=== PATIENT | female | born 1980 | race Caucasian/White ===

== ENCOUNTER 2017-08-14 10:57 | Day surgery (SDC) | payer BC ==
--- NOTE | 2017-08-13 20:02 | PCM.OPNOTE ---
- General Post-Op/Procedure Note Date of Surgery/Procedure: 08/14/17 Operative Procedure(s): ORIF R trimalleolar ankle fracture (med/lat only) Post-Op Diagnosis: R trimalleolar ankle fracture Anesthesia Technique: General LMA Primary Surgeon: Nessa Poe Vessel Traffic Officer: Nemo Orozco in mLs: 10 Condition: Good Free Text/Narrative:: tt= 42minutes
[~2017-08-14 10:57] MED LIST: Acetaminophen/HYDROcodone 325-5 MG Tab PO PRN; Ketorolac 30 MG/ML SDV ONE; Lactated Ringers 1,000 ML IV SCH; Lidocaine 2% 5 ML SDV ONE; Midazolam 1 MG/ML 2 ML SDV ONE; Ondansetron 4 MG/2 ML SDV ONE; Propofol 200 MG/20 ML SDV ONE; ceFAZolin 2 GM in Premix Bag 1 BAG IV SCH; fentaNYL 100 MCG/2 ML SDV ONE; fentaNYL 250 MCG/5 ML SDV ONE
[2017-08-14] MEDS ORDERED: Scopolamine 1.5 MG Transdermal Patch TRDERM PRN (12:03)
--- NOTE | 2017-08-14 12:04 | PCM.PREANE ---
Preanesthetic Assessment - Anesthesia/Transfusion/Family Hx Anesthesia History: Prior Anesthesia Reaction Type of Anesthesia Reaction: Excessive Nausea/Vomiting Family History of Anesthesia Reaction: No Transfusion History: No Prior Transfusion(s) - Review of Systems General: No Symptoms Pulmonary: No Symptoms Cardiovascular: No Symptoms Gastrointestinal: No Symptoms Neurological: No Symptoms Other: Reports: None - Physical Assessment NPO Status Date: 08/13/17 Height: 1.55 m Weight: 81.647 kg ASA Class: 2 Mental Status: Alert & Oriented x3 Airway Class: Mallampati = 2 Dentition: Reports: Normal Dentition ROM/Head Extension: Full Lungs: Clear to Auscultation, Normal Respiratory Effort Cardiovascular: Regular Rate, Regular Rhythm - Allergies Allergies/Adverse Reactions: Allergies Allergy/AdvReac Type Severity Reaction Status Date / Time No Known Allergies Allergy Verified 08/09/17 14:39 - Anesthesia Plan Pre-Op Medication Ordered: Other (scop patch) - Acknowledgements Anesthesia Type Planned: General Anesthesia Pt an Appropriate Candidate for the Planned Anesthesia: Yes Alternatives and Risks of Anesthesia Discussed w Pt/Guardian: Yes Pt/Guardian Understands and Agrees with Anesthesia Plan: Yes PreAnesthesia Questionnaire Other HEENT History: wears glasses Cardiovascular History: Reports: Arrhythmia Other Cardiovascular History: hx of "skipping beats", not recently...told to stay away from caffeine. 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 Was septic 4 years ago Musculoskeletal History: Reports: Fracture Other Musculoskeletal History: hx of fx toe Neurological History: Reports: Vertigo Other Neuro History: hx of vertigo, not for 6 months Psychiatric History: Reports: Anxiety, Depression Endocrine/Metabolic History: Reports: Obesity/BMI 30+ Other Dermatologic History: hx of vaginal herpes - Past Surgical History Head Surgeries/Procedures: Reports: None HEENT Surgical History: Reports: Eye Surgery Other HEENT Surgeries/Procedures: hx of left eye muscle surgery Female Surgical History: Reports: Breast Implant, Cervical Conization, Tubal Ligation - SUBSTANCE USE Smoking Status *Q: Never Smoker Recreational Drug Use History: No - HOME MEDS Home Medications: Home Meds traZODone HCl [Trazodone HCl] 100 mg PO BEDTIME 08/09/17 [History] Acetaminophen/HYDROcodone [[place] 325-5 MG] 1 - 2 tab PO Q4H PRN #80 tablet 08/14 [Rx] - CURRENT (IN HOUSE) MEDS Current Meds: Current Medications Hydrocodone Bitart/Acetaminophen ([place] 325-5 Mg) 1 - 2 tab PO Q4H PRN PRN Reason: Pain Lactated Ringer's (Ringers, Lactated) 1,000 mls @ 125 mls/hr IV ASDIRECTED ALISA Cefazolin Sodium/Dextrose 2 gm (/ Premix) 50 mls @ 100 mls/hr IV ONCALL ALISA Discontinued Medications Fentanyl (Sublimaze) Confirm Administered Dose 100 mcg .ROUTE .STK-MED ONE Stop: 08/14/17 10:14 Fentanyl (Sublimaze) Confirm Administered Dose 250 mcg .ROUTE .STK-MED ONE Stop: 08/14/17 10:14 Ketorolac Tromethamine (Toradol) Confirm Administered Dose 30 mg .ROUTE .STK- MED ONE Stop: 08/14/17 10:14 Lidocaine (Xylocaine-Mpf 2%) Confirm Administered Dose 10 ml .ROUTE .STK-MED ONE Stop: 08/14/17 10:14 Midazolam HCl (Versed 1 Mg/Ml) Confirm Administered Dose 2 mg .ROUTE .STK-MED ONE Stop: 08/14/17 10:14 Ondansetron HCl (Zofran) Confirm Administered Dose 4 mg .ROUTE .STK-MED ONE Stop: 08/14/17 10:14 Propofol (Diprivan 20 Ml) Confirm Administered Dose 400 mg .ROUTE .STK-MED ONE Stop: 08/14/17 10:14
[2017-08-14] MEDS ORDERED: Ondansetron 4 MG/2 ML SDV ONE (13:25)
[2017-08-14] MEDS ORDERED: Ondansetron 4 MG Tab.DIS PO PRN (14:17)
[2017-08-14] MEDS ORDERED: Acetaminophen/oxyCODONE 325-10 MG Tab PO PRN (14:17)
[2017-08-14] MEDS: HYDROmorphone 2 MG/ML Syringe IVPUSH ONE ×2 (14:23→14:28)
[2017-08-14] MEDS: fentaNYL 100 MCG/2 ML SDV IVPUSH PRN ×4 (14:25→14:49)
--- NOTE | 2017-08-14 15:15 | PCM.POSTAN ---
POST ANESTHESIA ASSESSMENT - MENTAL STATUS Mental Status: Alert, Oriented - RESPIRATORY Respiratory Status: Respiratory Rate WNL, Airway Patent, O2 Saturation Stable - CARDIOVASCULAR CV Status: Pulse Rate WNL, Blood Pressure Stable - GASTROINTESTINAL GI Status: No Symptoms - PAIN Pain Score: 3 - POST OP HYDRATION Hydration Status: Adequate & Stable
--- NOTE | 2017-08-14 16:43 | PCM48HPAN ---
Post Anesthesia Note - EVALUATION WITHIN 48HRS OF ANESTHETIC Vital Signs in Normal Range: Yes Patient Participated in Evaluation: Yes Respiratory Function Stable: Yes Airway Patent: Yes Cardiovascular Function Stable: Yes Hydration Status Stable: Yes Pain Control Satisfactory: Yes Nausea and Vomiting Control Satisfactory: Yes Mental Status Recovered: Yes
--- NOTE | 2017-08-14 16:43 | CR ---
EXAMINATION: Unspecified Ankle HISTORY: Surgery COMPARISON: None TECHNIQUE: 5 fluoroscopic images provided FINDINGS/IMPRESSION: Operative control films demonstrate screw and plate hardware fixating the distal fibula. 2 screws fixate the medial malleolus.
--- NOTE | 2017-08-14 18:58 | OR ---
SURGEON: Nessa Poe MD DATE OF PROCEDURE: 08/14/2017 PREOPERATIVE DIAGNOSIS: Right trimalleolar ankle fracture. POSTOPERATIVE DIAGNOSIS: Right trimalleolar ankle fracture. PROCEDURE: Open reduction and internal fixation of right trimalleolar ankle fracture (medial and lateral malleolus only). FAST FOOD MANAGER: Nemo Orozco PA-C. ANESTHESIA: General. ESTIMATED BLOOD LOSS: 10 mL. TOURNIQUET TIME: 42 minutes. COMPLICATIONS: None. DVT PROPHYLAXIS: PAS boot to the nonoperative leg. IMPLANTS USED: [place] 1/3rd semitubular plate, 7 hole with a combination of 3.5 mm nonlocking cortical screws and 4.0 mm nonlocking cancellous screws. BRIEF HISTORY: Josselin is a 36-year-old female, who injured her right ankle. She was seen in clinic where x-rays showed a right trimalleolar ankle fracture. At that time, surgical treatment was recommended. Risks and goals of procedure were discussed with the patient and were documented preoperatively. She agreed to proceed. DESCRIPTION OF PROCEDURE: The patient was properly identified and brought to the operating room. She was transferred from the OR cart and placed on the operating table in supine position. General anesthesia was administered. After adequate anesthesia was obtained, well-padded tourniquet was applied to the right lower extremity. The right lower extremity was then prepped in standard fashion using ChloraPrep solution. It was then sterilely draped. A time-out was performed to ensure correct site and procedure. Preoperative antibiotics were given. The surgical site had been marked preoperatively. An Esmarch was used to exsanguinate the right lower extremity, and the tourniquet was inflated to 250 mmHg. An incision was made over the lateral aspect of the ankle. Subcutaneous tissues were incised. The soft tissues were dissected. The superficial peroneal nerve was not encountered. Fracture was then identified. It was quite transverse in nature. The fracture site was opened and fracture hematoma was evacuated with saline. A bone reduction clamp was then placed and the fracture was reduced. I elected to proceed with a 7 hole 1/3rd semitubular plate. This was contoured to the bone. 3.5 mm screws were used proximally and 4.0 mm screws were used distal to the fracture site. The C-arm imaging did confirm that the fibula was out to length and there was adequate reduction of the fracture. A screw hole over the fracture site was not filled as I did not feel there would be significant purchase. I then turned my attention to the medial aspect. An incision was made over the medial malleolus. Subcutaneous tissues were dissected. I did not encounter this superficial nerve or vein. The periosteum was then incised. The fracture was visualized. A portion of the periosteum had flipped into the fracture site. The fracture was held open while it was copiously irrigated with saline solution to remove any fracture hematoma. It was able to be reduced easily. Two K-wire guide pins were then passed from the tip of the medial malleolus into the distal tibia. There position was checked in both the AP and lateral views and was felt that they were acceptable. The cannulated drill bit was then used to over drill the distal portion of the fragment. Two 50 mm partially threaded cancellous screws with washer were then placed. This provided good compression at the fracture site. Final C-arm images confirmed nearly anatomic reduction of the fracture with good position of the hardware. Both wounds were then copiously irrigated with saline solution. The deep tissues were closed with 0 Vicryl. The tourniquet was then deflated. No excess bleeding was noted. Subcutaneous tissues were closed with 2-0 Monocryl and the skin was closed with dagoberto. Xeroform gauze was placed over the wound and a bulky dressing was applied. It was placed into a well-padded posterior splint with medial and lateral stabilizing slabs. She was awakened from her anesthetic and transferred back to the operating room cart. She was brought to recovery room in stable condition. All needle and sponge counts were correct. ITZ / RONNY /[id number]
== END 2017-08-14 16:40 | disposition home or self-care (01) ==
LOC: MW.SDS 10:57
PROVIDERS: ATTEND Orthopaedic Surgery
DX: S82.851A Displaced trimalleolar fracture of right lower leg, initial encounter for closed fracture (principal); F41.9 Anxiety disorder, unspecified; F32.9 Major depressive disorder, single episode, unspecified; E66.9 Obesity, unspecified; Z79.899 Other long term (current) drug therapy; Z98.51 Tubal ligation status; Z68.30 Body mass index [BMI] 30.0-30.9, adult; X58.XXXA Exposure to other specified factors, initial encounter
CPT/HCPCS: 27822; 76001; 81025; A9270; C1713; C1769; J0690; J1170; J1885; J2250; J2405; J3010; J7120; 01480; J2704

== ENCOUNTER 2018-04-11 09:14 | Day surgery (SDC) | payer BC ==
[~2018-04-11 09:14] MED LIST changes: -Ketorolac 30 MG/ML SDV ONE; -Lidocaine 2% 5 ML SDV ONE; -Midazolam 1 MG/ML 2 ML SDV ONE; -Ondansetron 4 MG/2 ML SDV ONE; -Propofol 200 MG/20 ML SDV ONE; +ceFAZolin 1 GM in Premix Bag 1 BAG IV SCH; -ceFAZolin 2 GM in Premix Bag 1 BAG IV SCH; -fentaNYL 100 MCG/2 ML SDV ONE; -fentaNYL 250 MCG/5 ML SDV ONE
[2018-04-11] MEDS ORDERED: Bupivacaine 0.5% 10 ML SDV ONE (09:16)
--- NOTE | 2018-04-11 09:51 | PCM.PREANE ---
Preanesthetic Assessment - Procedure Proposed Procedure: Painful Hardware Removal Right Ankle - Anesthesia/Transfusion/Family Hx Anesthesia History: Prior Anesthesia Without Reaction Transfusion History: No Prior Transfusion(s) - Review of Systems General: No Symptoms Pulmonary: No Symptoms Cardiovascular: No Symptoms Gastrointestinal: No Symptoms Neurological: No Symptoms Other: Reports: None - Physical Assessment NPO Status Date: 04/10/18 NPO Status Time: 22:00 Height: 5 ft 1 in Weight: 77.111 kg ASA Class: 2 Mental Status: Alert & Oriented x3 Airway Class: Mallampati = 2 Dentition: Reports: Normal Dentition Thyro-Mental Finger Breadths: 3 Mouth Opening Finger Breadths: 3 ROM/Head Extension: Full Lungs: Clear to Auscultation, Normal Respiratory Effort Cardiovascular: Regular Rate, Regular Rhythm - Allergies Allergies/Adverse Reactions: Allergies Allergy/AdvReac Type Severity Reaction Status Date / Time No Known Allergies Allergy Verified 04/05/18 13:26 - Anesthesia Plan Free Text/Narrative:: Pulse Regular for 60 seconds via palpation. - Acknowledgements Anesthesia Type Planned: General Anesthesia Pt an Appropriate Candidate for the Planned Anesthesia: Yes Alternatives and Risks of Anesthesia Discussed w Pt/Guardian: Yes Pt/Guardian Understands and Agrees with Anesthesia Plan: Yes PreAnesthesia Questionnaire HEENT History: Reports: Other (See Below) Other HEENT History: wears glasses Cardiovascular History: Reports: Arrhythmia, Other (See Below) Other Cardiovascular History: hx of "skipping beats", not recently...told to stay away from caffeine. Pt did have a holter monitor test complete a few years ago. 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 Was septic in the past Musculoskeletal History: Reports: Fracture Other Musculoskeletal History: hx of fx toe Neurological History: Reports: Vertigo Other Neuro History: hx of vertigo Psychiatric History: Reports: ADD, Anxiety, Depression Endocrine/Metabolic History: Reports: Obesity/BMI 30+ Hematologic History: Reports: None Immunologic History: Reports: None Oncologic (Cancer) History: Reports: None Dermatologic History: Reports: Other (See Below) Other Dermatologic History: hx of vaginal herpes - Infectious Disease History Infectious Disease History: Reports: None - Past Surgical History Head Surgeries/Procedures: Reports: None HEENT Surgical History: Reports: Eye Surgery Other HEENT Surgeries/Procedures: hx of left eye muscle surgery Female Surgical History: Reports: Breast Implant, Cervical Conization, Tubal Ligation Musculoskeletal Surgical History: Reports: ORIF Other Musculoskeletal Surgeries/Procedures:: ORIF rt ankle - SUBSTANCE USE Smoking Status *Q: Never Smoker Recreational Drug Use History: No - HOME MEDS Home Medications: Home Meds Ranitidine [Zantac] 1 tab PO ASDIRECTED PRN 04/05/18 [History] traZODone HCl [Trazodone HCl] 100 mg PO BEDTIME PRN 04/05/18 [History] - CURRENT (IN HOUSE) MEDS Current Meds: Current Medications Hydrocodone Bitart/Acetaminophen ([place] 325-5 Mg) 1 - 2 tab PO Q4H PRN PRN Reason: Pain Cefazolin Sodium/Dextrose 1 gm (/ Premix) 50 mls @ 100 mls/hr IV ONCALL ALISA Lactated Ringer's (Ringers, Lactated) 1,000 mls @ 100 mls/hr IV ASDIRECTED ALISA Discontinued Medications Bupivacaine HCl (Sensorcaine-Mpf 0.5%) Confirm Administered Dose 20 ml .ROUTE .STK-MED ONE Stop: 04/11/18 09:17
[2018-04-11] MEDS ORDERED: Midazolam 1 MG/ML 2 ML SDV IVPUSH ONE (11:07)
[2018-04-11] MEDS ORDERED: Ketorolac 30 MG/ML SDV ONE (12:39)
[2018-04-11] MEDS ORDERED: ePHEDrine 50 MG/ML SDV ONE (12:39)
[2018-04-11] MEDS ORDERED: fentaNYL 100 MCG/2 ML SDV ONE (12:39)
[2018-04-11] MEDS ORDERED: Propofol 200 MG/20 ML SDV ONE (12:39)
[2018-04-11] MEDS ORDERED: Dexamethasone 4 MG/ML 5 ML MDV ONE (12:39)
[2018-04-11] MEDS ORDERED: Midazolam 1 MG/ML 2 ML SDV ONE (12:39)
[2018-04-11] MEDS ORDERED: Ondansetron 4 MG/2 ML SDV ONE (12:39)
[2018-04-11] MEDS ORDERED: Acetaminophen/oxyCODONE 325-5 MG Tab PO PRN (13:27)
--- NOTE | 2018-04-11 13:30 | PCM.OPNOTE ---
- General Post-Op/Procedure Note Date of Surgery/Procedure: 04/11/18 Operative Procedure(s): HWR right ankle Post-Op Diagnosis: painful retained HW R ankle Anesthesia Technique: General ET Tube Primary Surgeon: Nessa Poe Pool Attendant: Larissa Oneill in mLs: 5 Condition: Good Free Text/Narrative:: tt=13 min #[id number]
[2018-04-11] MEDS: fentaNYL 100 MCG/2 ML SDV IVPUSH PRN ×2 (13:43→13:48)
--- NOTE | 2018-04-11 13:51 | OR ---
SURGEON: Nessa Poe MD DATE OF PROCEDURE: 04/11/2018 PREOPERATIVE DIAGNOSES: 1. Painful retained hardware, right ankle, status post open reduction and internal fixation. 2. Right bimalleolar ankle fracture. POSTOPERATIVE DIAGNOSES: 1. Painful retained hardware, right ankle, status post open reduction and internal fixation. 2. Right bimalleolar ankle fracture. PROCEDURE: Hardware removal of right ankle, deep implant. INFORMATION SECURITY SYSTEMS INSTRUCTOR: Larissa Oneill PA-C. ANESTHESIA: General. ESTIMATED BLOOD LOSS: 5 mL. TOURNIQUET TIME: 13 minutes. COMPLICATIONS: None. DVT PROPHYLAXIS: Not indicated. IMPLANTS USED: None. BRIEF HISTORY: Josselin is a 37-year-old female, who previously underwent open reduction and internal fixation of a right ankle fracture. She did heal the fracture well; however, continued to be bothered by persistent pain over the hardware. Due to her lack of response to conservative treatment, I did recommend surgical intervention. The risks and goals of procedure were discussed with the patient and were documented preoperatively. She agreed to proceed. DESCRIPTION OF PROCEDURE: The patient was properly identified and brought to the operating room. She was transferred from the OR cart and placed on the operating table in supine position. General anesthesia was administered. After adequate anesthesia was obtained, a well-padded tourniquet was applied to the right lower extremity. The right lower extremity was then prepped in standard fashion using ChloraPrep solution. It was then sterilely draped. A time-out was performed to ensure correct site and procedure. Preoperative antibiotics were given. The surgical site had been marked preoperatively. An Esmarch was used to exsanguinate the right lower extremity and the tourniquet was inflated to 250 mmHg. An incision was made over the lateral aspect of the ankle, over the site of the previous incision. Subcutaneous tissues were dissected. The superficial peroneal nerve was not encountered. The hardware was readily visible. The soft tissue was cleared from the plate. The screws and plate were then removed without difficulty. The wound was copiously irrigated with saline solution. The deep tissues were closed with 0 Vicryl. The subcutaneous tissues were closed with 2-0 Monocryl and the skin was closed with dagoberto. I then turned my attention to the medial side. A medial incision was made over the site of the previous incision. The subcutaneous tissues were dissected down to the level of the hardware. It was easily identifiable. Two screws along with washers were removed without difficulty. Wound was copiously irrigated with saline solution. Deep tissues were closed with 0 Vicryl. Subcutaneous tissues were closed with 2-0 Monocryl and the skin was closed with dagoberto. C- arm imaging confirmed, all hardware had been removed. Hardware was sent for pathology review. 0.5% Marcaine was injected was then injected along the incision sites. Xeroform gauze was placed over the wounds and a bulky dressing was applied. The tourniquet was deflated prior to final wound closure, which showed no excess bleeding upon deflation. She was awakened from her anesthetic and transferred back to the operating room cart. She was brought to recovery room in stable condition. All needle and sponge counts were correct. ITZ / RONNY /[id number]
--- NOTE | 2018-04-11 14:19 | PCM.POSTAN ---
POST ANESTHESIA ASSESSMENT - MENTAL STATUS Mental Status: Alert, Oriented - RESPIRATORY Respiratory Status: Respiratory Rate WNL, Airway Patent, O2 Saturation Stable - CARDIOVASCULAR CV Status: Pulse Rate WNL, Blood Pressure Stable - GASTROINTESTINAL GI Status: No Symptoms - POST OP HYDRATION Hydration Status: Adequate & Stable
--- NOTE | 2018-04-11 14:19 | PCM48HPAN ---
Post Anesthesia Note - EVALUATION WITHIN 48HRS OF ANESTHETIC Vital Signs in Normal Range: Yes Patient Participated in Evaluation: Yes Respiratory Function Stable: Yes Airway Patent: Yes Cardiovascular Function Stable: Yes Hydration Status Stable: Yes Pain Control Satisfactory: Yes Nausea and Vomiting Control Satisfactory: Yes Mental Status Recovered: Yes Resp Rate: 20
[2018-04-11] MEDS ORDERED: Haloperidol Lactate 5 MG/ML SDV IM ONE (14:28)
--- NOTE | 2018-04-11 16:29 | CR ---
EXAMINATION: Right ankle HISTORY: Hardware removal COMPARISON: 02/06/2018 TECHNIQUE: Single view FINDINGS/IMPRESSION: Postoperative films demonstrate removal of distal fibular screw and plate hardwa re and 2 screws fixating the medial malleolus.
== END 2018-04-11 15:00 | disposition home or self-care (01) ==
LOC: MW.SDS 09:14
PROVIDERS: ATTEND Orthopaedic Surgery
DX: T84.84XA Pain due to internal orthopedic prosthetic devices, implants and grafts, initial encounter (principal); E66.9 Obesity, unspecified; Z68.32 Body mass index [BMI] 32.0-32.9, adult; F41.9 Anxiety disorder, unspecified; F32.9 Major depressive disorder, single episode, unspecified
CPT/HCPCS: 20680; 76000; 81025; A9270; J1100; J1630; J1885; J2250; J2405; J2704; J3010; J3490; J7120; 88300

== ENCOUNTER 2019-09-27 06:38 | Day surgery (SDC) | payer BC ==
[~2019-09-27 06:38] MED LIST changes: -Acetaminophen/HYDROcodone 325-5 MG Tab PO PRN; -ceFAZolin 1 GM in Premix Bag 1 BAG IV SCH
[2019-09-27] MEDS ORDERED: Bupivacaine 0.5% 30 ML SDV ONE (07:16)
[2019-09-27] MEDS ORDERED: Lidocaine 1% 20 ML MDV ONE (07:16)
--- NOTE | 2019-09-27 07:20 | PCM.PREANE ---
Preanesthetic Assessment - Anesthesia/Transfusion/Family Hx Anesthesia History: Prior Anesthesia Without Reaction Family History of Anesthesia Reaction: No Transfusion History: No Prior Transfusion(s) - Review of Systems General: No Symptoms Pulmonary: No Symptoms Cardiovascular: No Symptoms Gastrointestinal: No Symptoms Neurological: No Symptoms Other: Reports: None - Physical Assessment NPO Status Date: 09/26/19 NPO Status Time: 22:30 Vital Signs: Last Vital Signs Temp 96.6 F 09/27/19 07:00 Pulse 77 09/27/19 07:00 Resp 18 09/27/19 07:00 BP 139/72 09/27/19 07:00 Pulse Ox 98 09/27/19 07:00 Height: 5 ft 1 in Weight: 78.925 kg ASA Class: 2 Mental Status: Alert & Oriented x3 Airway Class: Mallampati = 2 Dentition: Reports: Normal Dentition ROM/Head Extension: Full Lungs: Clear to Auscultation, Normal Respiratory Effort Cardiovascular: Regular Rate, Regular Rhythm - Lab Values: Laboratory Last Values Urine HCG, Qual NEGATIVE (NEGATIVE) 09/27/19 06:56 - Allergies Allergies/Adverse Reactions: Allergies Allergy/AdvReac Type Severity Reaction Status Date / Time No Known Allergies Allergy Verified 09/23/19 08:37 - Blood Blood Available: No - Anesthesia Plan Pre-Op Medication Ordered: None - Acknowledgements Anesthesia Type Planned: General Anesthesia Pt an Appropriate Candidate for the Planned Anesthesia: Yes Alternatives and Risks of Anesthesia Discussed w Pt/Guardian: Yes Pt/Guardian Understands and Agrees with Anesthesia Plan: Yes Additional Comments: apl: swasonal allergies, anx/dep, migraine plan: ga/lma PreAnesthesia Questionnaire HEENT History: Reports: Other (See Below) Other HEENT History: wears glasses Cardiovascular History: Reports: Arrhythmia, Other (See Below) Other Cardiovascular History: hx of "skipping beats", not recently...told to stay away from caffeine. 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 Was septic in the past Musculoskeletal History: Reports: Fracture Other Musculoskeletal History: hx of fx toe & rt ankle Neurological History: Reports: None Psychiatric History: Reports: ADD, Anxiety, Depression Endocrine/Metabolic History: Reports: Obesity/BMI 30+ Hematologic History: Reports: None Immunologic History: Reports: None Oncologic (Cancer) History: Reports: None Dermatologic History: Reports: Other (See Below) Other Dermatologic History: hx of vaginal herpes - Infectious Disease History Infectious Disease History: Reports: None - Past Surgical History Head Surgeries/Procedures: Reports: None HEENT Surgical History: Reports: Eye Surgery Other HEENT Surgeries/Procedures: hx of left eye muscle surgery Cardiovascular Surgical History: Reports: None Respiratory Surgical History: Reports: None GI Surgical History: Reports: None Female Surgical History: Reports: Breast Implant, Cervical Conization, Tubal Ligation Endocrine Surgical History: Reports: None Neurological Surgical History: Reports: None Musculoskeletal Surgical History: Reports: ORIF Other Musculoskeletal Surgeries/Procedures:: ORIF rt ankle, later had hardware removed Oncologic Surgical History: Reports: None Dermatological Surgical History: Reports: None - SUBSTANCE USE Smoking Status *Q: Never Smoker - HOME MEDS Home Medications: Home Meds Ibuprofen 3 - 4 tab PO DAILY 09/23/19 [History] Multivit-Min/Folic Acid/Biotin [Hair, Skin and Nails Caplet] 1 tab PO DAILY [History] Multivitamin [Multivitamins] 1 tab PO DAILY 09/23/19 [History] - CURRENT (IN HOUSE) MEDS Current Meds: Current Medications Lactated Ringer's (Ringers, Lactated) 1,000 mls @ 125 mls/hr IV ASDIRECTED [facility] Last Admin: 09/27/19 07:00 Dose: 125 mls/hr
[2019-09-27] MEDS ORDERED: Lidocaine 2% 5 ML SDV ONE (07:33)
[2019-09-27] MEDS ORDERED: Midazolam 1 MG/ML 2 ML SDV ONE (07:34)
[2019-09-27] MEDS ORDERED: fentaNYL 100 MCG/2 ML SDV ONE (07:34)
[2019-09-27] MEDS ORDERED: Propofol 200 MG/20 ML SDV ONE (07:34)
[2019-09-27] MEDS ORDERED: Ondansetron 4 MG/2 ML SDV ONE (08:07)
[2019-09-27] MEDS ORDERED: Dexamethasone 4 MG/ML 5 ML MDV ONE (08:07)
[2019-09-27] MEDS ORDERED: fentaNYL 100 MCG/2 ML SDV IVPUSH PRN (08:46)
[2019-09-27] MEDS ORDERED: Acetaminophen 325 MG Tab PO PRN (08:56)
--- NOTE | 2019-09-27 08:59 | PCM.OPNOTE ---
- General Post-Op/Procedure Note Date of Surgery/Procedure: 09/27/19 Operative Procedure(s): Removal of left thumbnail and removal of left thumb wart Pre Op Diagnosis: Recalcitrant wart Post-Op Diagnosis: Same Anesthesia Technique: General LMA (ASA II) Primary Surgeon: Marco Whitley Fluid Replacement, Intraop: 400 EBL in mLs: 0 Condition: Good Free Text/Narrative:: DICTATION [id number] CPT CODE 95126
[2019-09-27] MEDS ORDERED: Lactated Ringers 1,000 ML IV SCH (09:00)
[2019-09-27] MEDS ORDERED: Acetaminophen/HYDROcodone 325-5 MG Tab PO ONE (09:27)
--- NOTE | 2019-09-27 09:39 | PCM.POSTAN ---
POST ANESTHESIA ASSESSMENT - MENTAL STATUS Mental Status: Alert, Oriented - VITAL SIGNS Vital Signs: Last Vital Signs Temp 96.6 F 09/27/19 09:09 Pulse 86 09/27/19 09:09 Resp 16 09/27/19 09:09 BP 116/72 09/27/19 09:09 Pulse Ox 99 09/27/19 09:09 - RESPIRATORY Respiratory Status: Respiratory Rate WNL, Airway Patent, O2 Saturation Stable - CARDIOVASCULAR CV Status: Pulse Rate WNL, Blood Pressure Stable - GASTROINTESTINAL GI Status: No Symptoms - POST OP HYDRATION Hydration Status: Adequate & Stable
--- NOTE | 2019-09-27 09:40 | PCM48HPAN ---
Post Anesthesia Note - EVALUATION WITHIN 48HRS OF ANESTHETIC Vital Signs in Normal Range: Yes Patient Participated in Evaluation: Yes Respiratory Function Stable: Yes Airway Patent: Yes Cardiovascular Function Stable: Yes Hydration Status Stable: Yes Pain Control Satisfactory: Yes Nausea and Vomiting Control Satisfactory: Yes Mental Status Recovered: Yes Vital Signs: Last Vital Signs Temp 96.6 F 09/27/19 09:09 Pulse 86 09/27/19 09:09 Resp 16 09/27/19 09:09 BP 116/72 09/27/19 09:09 Pulse Ox 99 09/27/19 09:09
--- NOTE | 2019-09-27 12:28 | OR ---
SURGEON: Marco Whitley M.D. DATE OF PROCEDURE: 09/27/2019 OPERATION PERFORMED: Removal of left thumb wart with removal of left thumbnail. PRIMARY SURGEON: Marco Whitley MD. ANESTHESIA: General LMA ASA CLASSIFICATION: II. PREOPERATIVE DIAGNOSIS: Recalcitrant wart. POSTOPERATIVE DIAGNOSIS: Recalcitrant wart. ESTIMATED BLOOD LOSS: Minimal. INTRAOPERATIVE FLUID REPLACEMENT: 500 mL of crystalloid. DESCRIPTION OF PROCEDURE: The patient was taken to the operating room and placed on the operating table in the supine position. Time-out was called for appropriate identification of the patient and procedure. Following satisfactory attainment of general anesthesia with placement of an LMA, the left hand was prepped with DuraPrep solution and sterile drapes were applied. It was necessary to remove the thumbnail to get at all of the wart. Once this thumbnail was removed, using a combination of electrocautery and sharp debridement, the wart was removed. Treatment was continued until there was no obvious wart remaining and no significant steam coming from any of the cautery sites. Once that was completed, hemostasis was obtained with the use of electrocautery. The wound was then inspected for hemostasis and no bleeding was noted. There was no obvious wart noted remaining. With that accomplished, the wound was covered with bacitracin ointment and dressed with a Band-Aid. The patient tolerated the procedure well. Following emergence from anesthesia and extubation, she was taken to recovery room in stable condition. NIKOLAS / RONNY /[id number]
== END 2019-09-27 09:54 | disposition home or self-care (01) ==
LOC: MW.SDS 06:38
PROVIDERS: ATTEND Surgery
DX: B07.9 Viral wart, unspecified (principal); F41.9 Anxiety disorder, unspecified; F32.9 Major depressive disorder, single episode, unspecified; F98.8 Other specified behavioral and emotional disorders with onset usually occurring in childhood and adolescence; G43.909 Migraine, unspecified, not intractable, without status migrainosus; E66.9 Obesity, unspecified; Z68.32 Body mass index [BMI] 32.0-32.9, adult
CPT/HCPCS: 11750; 17110; 81025; A9270; J1100; J2001; J2250; J2405; J2704; J3010; J3490; J7120; 00400

== ENCOUNTER 2021-06-01 11:29 | Emergency (ER) | payer SELFPAY ==
--- NOTE | 2021-06-01 12:42 | EDM.PDOC ---
ED HPI GENERAL MEDICAL PROBLEM - General Chief Complaint: Abdominal Pain Stated Complaint: STOMACH PAIN Time Seen by Provider: 06/01/21 12:28 Source of Information: Reports: Patient History Limitations: Reports: No Limitations - History of Present Illness INITIAL COMMENTS - FREE TEXT/NARRATIVE: 40-year-old female no relevant past medical or past surgical history presents for right lower quadrant abdominal pain. She notes that the pain started a couple of days ago and worsened this morning. She states it feels crampy, achy and comes in waves. No associated urinary symptoms. Some nausea without vomiting. She notes that it feels somewhat similar to when she had an ovarian cyst. She has never had abdominal surgery so still has appendix and gallbladder. She notes that her period is due to start in a few days. She is declining any pain medication and states that she just wants to know what is wrong. right lower abdomen Pain Score (Numeric/FACES): 2 - Related Data Allergies Allergy/AdvReac Type Severity Reaction Status Date / Time No Known Allergies Allergy Verified 06/01/21 12:33 Home Meds: Home Meds Ibuprofen 3 - 4 tab PO DAILY 09/23/19 [History] traMADol [Ultram] 50 mg PO Q6H PRN #18 tab 06/01/21 [Rx] Past Medical History HEENT History: Reports: Other (See Below) Other HEENT History: wears glasses Cardiovascular History: Reports: Arrhythmia, Other (See Below) Other Cardiovascular History: hx of "skipping beats", not recently...told to stay away from caffeine. Pt did have a holter monitor test complete a few years ago. 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 Was septic in the past Musculoskeletal History: Reports: Fracture Other Musculoskeletal History: hx of fx toe Neurological History: Reports: Vertigo Other Neuro History: hx of vertigo Psychiatric History: Reports: ADD, Anxiety, Depression Endocrine/Metabolic History: Reports: Obesity/BMI 30+ Hematologic History: Reports: None Immunologic History: Reports: None Oncologic (Cancer) History: Reports: None Dermatologic History: Reports: Other (See Below) Other Dermatologic History: hx of vaginal herpes - Infectious Disease History Infectious Disease History: Reports: Chicken Pox, Shingles - Past Surgical History Head Surgeries/Procedures: Reports: None HEENT Surgical History: Reports: Eye Surgery Other HEENT Surgeries/Procedures: hx of left eye muscle surgery Cardiovascular Surgical History: Reports: None Respiratory Surgical History: Reports: None GI Surgical History: Reports: None Female Surgical History: Reports: Breast Implant, Cervical Conization, Tubal Ligation Endocrine Surgical History: Reports: None Neurological Surgical History: Reports: None Musculoskeletal Surgical History: Reports: ORIF Other Musculoskeletal Surgeries/Procedures:: ORIF rt ankle Oncologic Surgical History: Reports: None Dermatological Surgical History: Reports: None Social & Family History - Family History Family Medical History: No Pertinent Family History - Tobacco Use Tobacco Use Status *Q: Never Tobacco User - Recreational Drug Use Recreational Drug Use: Yes Drug Use in Last 12 Months: Yes Recreational Drug Type: Reports: Marijuana/Hashish Recreational Drug Use Frequency: Monthly ED ROS GENERAL - Review of Systems Review Of Systems: Comprehensive ROS is negative, except as noted in HPI. ED EXAM, GENERAL - Physical Exam Exam: See Below Exam Limited By: No Limitations General Appearance: Alert, WD/WN, No Apparent Distress Ears: Hearing Grossly Normal Throat/Mouth: Normal Voice, No Airway Compromise Head: Atraumatic, Normocephalic Neck: Normal Inspection Respiratory/Chest: No Respiratory Distress, Lungs Clear, Normal Breath Sounds, No Accessory Muscle Use Cardiovascular: Normal Peripheral Pulses, Regular Rate, Rhythm GI/Abdominal: Soft, Other (RLQ TTP with voluntary guarding) Extremities: Normal Inspection Neurological: Alert, Normal Cognition, Normal Gait Psychiatric: Normal Affect, Normal Mood Skin Exam: Warm, Dry, Intact, Normal Color Course - Vital Signs Last Recorded V/S: Last Vital Signs Temp 98.1 F 06/01/21 14:47 Pulse 82 06/01/21 14:47 Resp 18 06/01/21 14:47 BP 138/73 06/01/21 14:47 Pulse Ox 97 06/01/21 14:47 - Orders/Labs/Meds Orders: Active Orders 24 hr Category Date Time Status Saline Lock Insert [OM.PC] Stat Oth 06/01/21 12:40 Ordered Labs: Laboratory Tests 06/01/21 06/01/21 06/01/21 Range/Units 13:00 13:05 13:05 WBC 9.00 (4.0-11.0) K/uL RBC 4.64 (4.30-5.90) M/uL Hgb 14.1 (12.0-16.0) g/dL Hct 41.2 (36.0-46.0) % MCV 88.8 (80.0-98.0) fL MCH 30.4 (27.0-32.0) pg MCHC 34.2 (31.0-37.0) g/dL RDW Std Deviation 49.4 (28.0-62.0) fl RDW Coeff of Farshad 15 (11.0-15.0) % Plt Count 273 (150-400) K/uL MPV 10.40 (7.40-12.00) fL Neut % (Auto) 58.1 (48.0-80.0) % Lymph % (Auto) 33.8 (16.0-40.0) % Ritchie % (Auto) 6.7 (0.0-15.0) % Eos % (Auto) 1.1 (0.0-7.0) % Baso % (Auto) 0.3 (0.0-1.5) % Neut # (Auto) 5.2 (1.4-5.7) K/uL Lymph # (Auto) 3.0 H (0.6-2.4) K/uL Ritchie # (Auto) 0.6 (0.0-0.8) K/uL Eos # (Auto) 0.1 (0.0-0.7) K/uL Baso # (Auto) 0.0 (0.0-0.1) K/uL Nucleated RBC % 0.0 /100WBC Nucleated RBCs # 0 K/uL Sodium 136 (136-145) mmol/L Potassium 4.0 (3.5-5.1) mmol/L Chloride 102 (98-107) mmol/L Carbon Dioxide 29.9 (21.0-32.0) mmol/L BUN 19 H (7.0-18.0) mg/dL Creatinine 0.9 (0.6-1.0) mg/dL Est Cr Clr Drug Dosing 62.70 mL/min Estimated GFR (MDRD) > 60.0 ml/min Glucose 91 (74-106) mg/dL Lactic Acid (0.4-2.0) mmol/L Calcium 8.0 L (8.5-10.1) mg/dL Total Bilirubin 0.1 L (0.2-1.0) mg/dL AST 18 (15-37) IU/L ALT 23 (14-63) IU/L Alkaline Phosphatase 51 (46-116) U/L Total Protein 7.1 (6.4-8.2) g/dL Albumin 3.5 (3.4-5.0) g/dL Globulin 3.6 (2.6-4.0) g/dL Albumin/Globulin Ratio 1.0 (0.9-1.6) Lipase 144 (73-393) U/L HCG, Qual (NEG) Urine Color YELLOW Urine Appearance CLEAR Urine pH 7.0 (5.0-8.0) Ur Specific [place] 1.010 (1.001-1.035) Urine Protein NEGATIVE (NEGATIVE) mg/dL Urine Glucose (UA) NEGATIVE (NEGATIVE) mg/dL Urine Ketones NEGATIVE (NEGATIVE) mg/dL Urine Occult Blood NEGATIVE (NEGATIVE) Urine Nitrite NEGATIVE (NEGATIVE) Urine Bilirubin NEGATIVE (NEGATIVE) Urine Urobilinogen 0.2 (<2.0) EU/dL Ur Leukocyte Esterase NEGATIVE (NEGATIVE) 06/01/21 06/01/21 Range/Units 13:05 13:05 WBC (4.0-11.0) K/uL RBC (4.30-5.90) M/uL Hgb (12.0-16.0) g/dL Hct (36.0-46.0) % MCV (80.0-98.0) fL MCH (27.0-32.0) pg MCHC (31.0-37.0) g/dL RDW Std Deviation (28.0-62.0) fl RDW Coeff of Farshad (11.0-15.0) % Plt Count (150-400) K/uL MPV (7.40-12.00) fL Neut % (Auto) (48.0-80.0) % Lymph % (Auto) (16.0-40.0) % Ritchie % (Auto) (0.0-15.0) % Eos % (Auto) (0.0-7.0) % Baso % (Auto) (0.0-1.5) % Neut # (Auto) (1.4-5.7) K/uL Lymph # (Auto) (0.6-2.4) K/uL Ritchie # (Auto) (0.0-0.8) K/uL Eos # (Auto) (0.0-0.7) K/uL Baso # (Auto) (0.0-0.1) K/uL Nucleated RBC % /100WBC Nucleated RBCs # K/uL Sodium (136-145) mmol/L Potassium (3.5-5.1) mmol/L Chloride (98-107) mmol/L Carbon Dioxide (21.0-32.0) mmol/L BUN (7.0-18.0) mg/dL Creatinine (0.6-1.0) mg/dL Est Cr Clr Drug Dosing mL/min Estimated GFR (MDRD) ml/min Glucose (74-106) mg/dL Lactic Acid 1.3 (0.4-2.0) mmol/L Calcium (8.5-10.1) mg/dL Total Bilirubin (0.2-1.0) mg/dL AST (15-37) IU/L ALT (14-63) IU/L Alkaline Phosphatase (46-116) U/L Total Protein (6.4-8.2) g/dL Albumin (3.4-5.0) g/dL Globulin (2.6-4.0) g/dL Albumin/Globulin Ratio (0.9-1.6) Lipase (73-393) U/L HCG, Qual NEGATIVE (NEG) Urine Color Urine Appearance Urine pH (5.0-8.0) Ur Specific [place] (1.001-1.035) Urine Protein (NEGATIVE) mg/dL Urine Glucose (UA) (NEGATIVE) mg/dL Urine Ketones (NEGATIVE) mg/dL Urine Occult Blood (NEGATIVE) Urine Nitrite (NEGATIVE) Urine Bilirubin (NEGATIVE) Urine Urobilinogen (<2.0) EU/dL Ur Leukocyte Esterase (NEGATIVE) Meds: Medications Discontinued Medications Generic Name Dose Route Start Last Admin Trade Name Freq PRN Reason Stop Dose Admin Iopamidol 100 ml 06/01/21 14:25 06/01/21 14:26 Iopamidol 755 Mg/Ml 500 Ml Multipack Bottle IVPUSH 06/01/21 14:26 100 ml ONETIME STA Administration - Re-Assessments/Exams Free Text/Narrative Re-Assessment/Exam: 06/01/21 12:42 We will get basic labs. Will get CT imaging to rule out appendicitis. 06/01/21 15:28 CT with ovarian cyst no appendicitis. Will discharge with short course of tramadol as patient has had luck with this in the past with her ovarian cyst. Recommend ASSISTANT REFINERY OPERATOR follow-up. Departure - Departure Time of Disposition: 15:28 Disposition: Home, Self-Care 01 Condition: Good Clinical Impression: Ovarian cyst Qualifiers: Laterality: right Qualified Code(s): N83.201 - Unspecified ovarian cyst, right side - Discharge Information Instructions: Ovarian Cyst, [id number] Referrals: PCP,None [Primary Care Provider] - Forms: ED Department Discharge Additional Instructions: Please follow-up with an ASSISTANT REFINERY OPERATOR. The following information is given to patients seen in the emergency department who are being discharged to home. This information is to outline your options for follow-up care. We provide all patients seen in our emergency department w ith a follow-up referral. The need for follow-up, as well as the timing and circumstances, are variable depending upon the specifics of your emergency department visit. If you don't have a primary care physician on staff, we will provide you with a referral. We always advise you to contact your personal physician following an emergency department visit to inform them of the circumstance of the visit and for follow-up with them and/or the need for any referrals to a consulting specialist. The emergency department will also refer you to a specialist when appropriate. This referral assures that you have the opportunity for follow-up care with a specialist. All of these measure are taken in an effort to provide you with optimal care, which includes your follow-up. Under all circumstances we always encourage you to contact your private physician who remains a resource for coordinating your care. When calling for follow-up care, please make the office aware that this follow-up is from your recent emergency room visit. If for any reason you are refused follow-up, please contact the [facility] Emergency Department at and asked to speak to the emergency department charge nurse. Please follow up with your primary care physician. If you do not have a primary care physician, see below: [facility] [address], [place] [id number] [facility] [address] [place], [place] [id number] [facility] [address] [place] [address] Sepsis Event Note (ED) - Focused Exam Vital Signs: Vital Signs Temp Pulse Resp BP Pulse Ox 06/01/21 14:47 98.1 F 82 18 138/73 97 06/01/21 13:45 98.2 F 82 18 122/81 97 06/01/21 12:29 96.3 F L 71 16 104/77 95 - My Orders Last 24 Hours: My Active Orders 06/01/21 12:40 Saline Lock Insert [OM.PC] Stat - Assessment/Plan Last 24 Hours: My Active Orders 06/01/21 12:40 Saline Lock Insert [OM.PC] Stat
[2021-06-01 13:38] LABS: BLOOD UREA NITROGEN,BUN 19 mg/dL (7.0-18.0); CARBON DIOXIDE,CO2 29.9 mmol/L (21.0-32.0); CHLORIDE,CL 102 mmol/L (98-107); GLUCOSE RANDOM 91 mg/dL (74-106); LIPASE 144 U/L (73-393); SODIUM,NA 136 mmol/L (136-145)
[2021-06-01] MEDS ORDERED: Iopamidol 755 MG/ML 500 ML Multipack Bottle IVPUSH STA (14:25)
--- NOTE | 2021-06-01 15:02 | CT ---
Indication: Right lower quadrant abdominal pain Technique: Volumetric multidetector CT images of the abdomen and pelvis were obtained after the administration of intravenous contrast. 100 cc Isovue 300 low osmolar intravenous contrast Comparison: None available. Findings: The lung bases are clear. The liver is normal in attenuation without intrahepatic biliary ductal dilatation. The portal vein is patent. The gallbladder is unremarkable without evidence of radiopaque calculus. There is no significant common biliary ductal dilatation or abrupt cut off. The spleen is normal in enhancement and size. The stomach and duodenum are grossly unremarkable. The pancreas is normal in enhancement without significant atrophy. The adrenal glands are unremarkable. There is mild atrophic change of the right kidney with minimal compensatory hypertrophy of the left kidney with renal cortical defects of the right kidney likely representing sequela of remote injury. There is moderate stool seen throughout the colon with minimal distal colonic diverticulosis. There is no evidence of significant inflammatory change. The appendix is unremarkable. There is no significant mesenteric, retroperitoneal, or pelvic sidewall lymph nodes. The aorta is nonaneurysmal. There is no significant atherosclerotic disease appreciated. There is demonstration of a large involuting right ovarian follicle measuring 2.2 centimeters. Otherwise the pelvic viscera are grossly within normal limits. There is no free fluid or free air. The anterior abdominal wall is intact without significant hernias. The lumbar vertebral body heights are grossly maintained with mild multi-level degenerative disc disease. There is no significant spondylolisthesis or displaced fracture. Impression: Normal appendix. Involuting right ovarian follicle likely representing the nidus of the patient`s symptoms. Correlate with clinical history. Moderate diffuse stool seen throughout the colon otherwise no definite acute intra-abdominal abnormalities appreciated. Please note that all CT scans at this facility use dose modulation, iterative reconstruction, and/or weight-based dosing when appropriate to reduce radiation dose to as low as reasonably achievable. Dictated by Sumit Meléndez MD @ 06/01/2021 3:00:43 PM (Electronically Signed)
== END 2021-06-01 15:41 | disposition home or self-care (01) ==
LOC: MW.ED 11:29
DX: N83.201 Unspecified ovarian cyst, right side (principal); E66.9 Obesity, unspecified; Z68.28 Body mass index [BMI] 28.0-28.9, adult
CPT/HCPCS: 36415; 74177; 80053; 81003; 83605; 83690; 84703; 85025; 99284; Q9967

== ENCOUNTER 2023-07-23 15:33 | Emergency (ER) | payer SELFPAY | END 2023-07-23 17:28 | disposition home or self-care (01) | LOC: MW.ED 15:33 | DX: S83.412A Sprain of medial collateral ligament of left knee, initial encounter (principal); E66.9 Obesity, unspecified; Z68.30 Body mass index [BMI] 30.0-30.9, adult; W18.30XA Fall on same level, unspecified, initial encounter | CPT/HCPCS: 73562-26-LT; 73562-LT; 99283 ==